=== PATIENT | male | born 1950 | race Caucasian/White ===

== ENCOUNTER 2019-05-23 14:47 | Emergency (ER) | payer BC, MEDICARE ==
[2019-05-23] MEDS ORDERED: METHYLPREDNISOLONE PF 125MG/VIAL IVP ONE (15:21)
[2019-05-23] MEDS ORDERED: IPRATROPIUM/ALBUTEROL (0.5MG/3MG) NEB INH ONE (15:21)
[2019-05-23] MEDS ORDERED: ALBUTEROL SULFATE (0.083%) 2.5 MG/3 ML NEB INH ONE (15:21)
--- NOTE | 2019-05-23 15:27 | Emergency Department Record ---
History of Present Illness - General Chief Complaint: Shortness of breath Stated Complaint: BRICE/RT SIDE PAIN Time Seen by Provider: 05/23/19 15:18 Source: Patient, Family Mode of Arrival: Wheelchair Limitations: No limitations - History of Present Illness Initial Comments: The patient is here due to a 5 day hx of cough, SOB and sharp R lower rib pain. The pain is worse with any cough, deep breathing or movement. He denies any L sided CP, fever, chills, AP, or sputum production. The patient does have an extensive hx of COPD and is on home O2. MD Complaint: Shortness of breath Onset/Timin -: Days(s) Severity scale (1-10): 7 Quality: Sharp Consistency: Constant Improves With: Nothing Worsens With: Inspiration Known History Of: COPD Associated Symptoms: Denies other symptoms Treatments Prior to Arrival: Oxygen - Related Data Home Oxygen Therapy: Yes Home Oxygen Amount: 2 Liters Home Medications Medication Instructions Recorded Confirmed Last Taken Albuterol Sulfate [Proair Hfa] 1 - 2 puff IH .EVERY 4-6 HOURS PRN 05/23/19 05/23/19 Unknown Aspirin 81 mg PO DAILY 05/23/19 05/23/19 Unknown Atorvastatin Calcium [Lipitor] 80 mg PO DAILY 05/23/19 05/23/19 Unknown Budesonide/Formoterol Fumarate 10.2 gm IH BID 05/23/19 05/23/19 Unknown [Symbicort 160-4.5 Mcg Inhaler] Buspirone HCl [Buspar] 10 mg PO DAILY 05/23/19 05/23/19 Unknown Duloxetine HCl [Cymbalta] 60 mg PO DAILY 05/23/19 05/23/19 Unknown Metoprolol Succinate [Toprol Xl] 25 mg PO DAILY 05/23/19 05/23/19 Unknown Montelukast Sodium [Singulair] 10 mg PO QHS 05/23/19 05/23/19 Unknown Tamsulosin HCl [Flomax] 0.4 mg PO DAILY 05/23/19 05/23/19 Unknown Ticagrelor [Brilinta] 90 mg PO BID 05/23/19 05/23/19 Unknown Allergies Allergy/AdvReac Type Severity Reaction Status Date / Time No Known Drug Allergies Allergy Verified 05/23/19 16:10 Travel Screening - Travel/Exposure Within Last 30 Days Have you traveled within the last 30 days?: No Review of Systems Constitutional: Denies: Chills, Fever Eyes: Denies: Eye discharge ENT: Reports: Congestion Respiratory: Reports: Cough, Dyspnea. Denies: Hemoptysis Cardiovascular: Denies: Arrhythmia Endocrine: Reports: Fatigue Gastrointestinal: Denies: Diarrhea Genitourinary: Denies: Dysuria Musculoskeletal: Denies: Arthralgia Skin: Denies: Bruising Past Medical History - SOCIAL HISTORY Smoking Status: Former smoker Alcohol Use: None Drug Use: None - RESPIRATORY Hx Respiratory Disorders: Yes Hx COPD: Yes - CARDIOVASCULAR Hx Cardio Disorders: Yes Hx Abnormal EKG: Yes Hx Heart Attack: Yes Hx Vascular Disease: Yes (CAD) - NEURO Hx Neuro Disorders: Yes Hx Neuropathy: Yes - GI Hx GI Disorders: No - Hx Genitourinary Disorders: Yes Hx Prostate Problems: Yes - ENDOCRINE Hx Endocrine Disorders: No - MUSCULOSKELETAL Hx Musculoskeletal Disorders: Yes Hx Arthritis: Yes - PSYCH Hx Psych Problems: Yes Hx Anxiety: Yes - HEMATOLOGY/ONCOLOGY Hx Hematology/Oncology Disorders: Yes Hx Cancer: Yes Hx Chemotherapy: No Hx Radiation Therapy: No Family Medical History Any Significant Family History?: No Physical Exam - General General Appearance: Alert, Oriented x3, Cooperative, Mild distress (The patient is in mild distress and appears quite cachectic from COPD.) - Head Head exam: Atraumatic, Normocephalic, Normal inspection - Eye Eye exam: Normal appearance, PERRL - ENT Throat exam: Normal inspection. negative: Tonsillar erythema, Tonsillar exudate - Neck Neck exam: Normal inspection, Full ROM. negative: Lymphadenopathy, Tenderness - Respiratory Respiratory exam: Decreased breath sounds (R base.). negative: Normal lung tory nds bilaterally - Cardiovascular Cardiovascular Exam: Regular rate, Normal rhythm, Normal heart sounds - GI/Abdominal GI/Abdominal exam: Soft, Normal bowel sounds. negative: Distended, Rebound, Rigid, Tenderness - Extremities Extremities exam: Normal inspection, Full ROM, Normal capillary refill. negative: Tenderness - Neurological Neurological exam: Alert. negative: Motor sensory deficit Course Vital Signs 05/23/19 05/23/19 15:04 15:13 Temperature 98.1 F Pulse Rate 105 H Pulse Rate [ 99 H Pulse Ox Probe] Respiratory 22 28 H Rate Blood Pressure 108/89 Blood Pressure 108/89 [Left Arm] Pulse Ox 86 L 83 L - Reevaluation(s) Reevaluation #1: The patient is doing a lot better at this time. He is breathing much better and talking in full sentences. I did discuss the lab and xray results with the patient and did recommend hospital transfer to [facility] due to the fact that is where all his records are and where his PCP works. The patient did agree to that plan. I then did discuss the case with Dr. Valentin and he did accept the patient to [facility]. 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.) - Radiology Data Radiology results: Report reviewed (CXR: Extensive COPD, Mod to large RLL effusion with atelectasis or infiltrate present.) Disposition Disposition: Transfer Clinical Impression: COPD exacerbation Disposition: Acute Care Hospital Transfer Transfer To: [facility] Reason For Transfer: Pulmonary evaluation Accepting Physician: Homero Time Discussed w/Accepting Physician: 16:17 Condition: (2) Stable Forms: Patient Portal Access Time of Disposition: 16:17 Quality - Quality Measures Quality Measures: N/A - Blood Pressure Screening View Details: Yes Does Patient Have Any of the Following: No Blood Pressure Classification: Pre-Hypertensive BP Reading Systolic Measurement: 108 Diastolic Measurement: 89 Screening for High Blood Pressure: < Pre-Hypertensive BP, F/U Documented > [G8950] Pre-Hypertensive Follow-up Interventions: Referral to alternative/primary care provider.
[2019-05-23 15:30] LABS: HEMATOCRIT 44.5 % (42.0-52.0); HEMOGLOBIN 13.9 gm/dl (14.0-18.0); MEAN CELL VOLUME 96.1 fl (81-97); MEAN CORPUSCULAR HGB CONC 31.2 g/dl (32-36); MEAN PLATELET VOLUME 9.7 fl (7.4-10.4); PLATELET COUNT 376 K/uL (130-400); RED BLOOD COUNT 4.63 M/uL (4.40-5.70); RED CELL DISTRIBUTION WIDTH 15.7 % (11.5-14.5); WHITE BLOOD COUNT W/O DIFF 14.6 K/uL (4.2-12.2)
[2019-05-23 15:43] LABS: BLOOD UREA NITROGEN 20 mg/dL (8-23); CREATININE 0.7 mg/dL (0.7-1.2); EST GLOMERULAR FILTRATION RATE > 60 mL/min
[2019-05-23 15:44] LABS: TOTAL PROTEIN 7.3 g/dL (6.6-8.7)
[2019-05-23 15:46] LABS: GLUCOSE,RANDOM 115 mg/dL (74-109)
[2019-05-23 15:48] LABS: ALT/SGPT 109 U/L (<41); AST/SGOT 104 U/L (10.0-50.0)
[2019-05-23 15:49] LABS: ALB/GLOB RATIO 0.9 (1.1-1.8); ALBUMIN 3.4 g/dL (4.0-5.0); ALKALINE PHOSPHATASE 161 U/L (40-129)
[2019-05-23 15:53] LABS: PLATELET ESTIMATE NORMAL (NORMAL)
[2019-05-23] MEDS ORDERED: AZITHROMYCIN 500 MG in 0.9 % SODIUM CHLORIDE 250ML 250 ML IVPB ONE (16:09)
[2019-05-23] MEDS ORDERED: CEFTRIAXONE SODIUM 1 GM in 0.9 % SODIUM CHLORIDE 100ML 100 ML IVPB ONE (16:09)
[2019-05-23] MEDS ORDERED: CEFTRIAXONE 1GM/50ML BAG 1 GM/50 ML BAG IVPB ONE (16:30)
[2019-05-23 17:36] LABS: URINE APPEARANCE SL CLOUDY; URINE BILIRUBIN NEGATIVE (NEGATIVE); URINE BLOOD NEGATIVE (NEGATIVE); URINE COLOR YELLOW; URINE GLUCOSE (UA) NEGATIVE (NEGATIVE); URINE KETONE TRACE (NEGATIVE); URINE LEUKOCYTE ESTERASE TRACE (NEGATIVE); URINE NITRITE POSITIVE (NEGATIVE); URINE PROTEIN TRACE (NEGATIVE); URINE UROBILINOGEN >=8.0 E.U./dL (0.20 - 1.00)
[2019-05-23 17:41] LABS: URINE BACTERIA 4+; URINE EPITHELIAL CELLS NONE SEEN (FEW); URINE RBC NONE SEEN (NONE SEEN); URINE WBC 21 - 35 (0-2/hpf)
--- NOTE | 2019-05-25 07:47 | RADIOLOGY REPORT ---
EXAM: CHEST, TWO VIEWS HISTORY: RIGHT LOWER RIB PAIN, DIFFICULTY IN BREATHING, SHORTNESS OF BREATH. TECHNIQUE: PA and lateral views of the chest were obtained. Comparison: None. FINDINGS: The heart size is within normal limits. ICD in place with no definite pneumothorax seen, however, there does appear to be advanced underlying COPD probably with extensive bullous disease in the mid to upper lungs in particular, right greater than left. There is also prominent opacity in the right base which is probably largely related to right pleural effusion although there may be some underlying right basilar atelectasis or infiltrate as well. Follow-up films are suggested after suitable therapy to confirm clearing. There is some minor linear fibrosis or discoid atelectasis in the left base. There is probably coronary artery calcification or a long coronary artery stent in place. IMPRESSION: 1. FINDINGS CONSISTENT WITH ADVANCED COPD. 2. OPACITY IN THE RIGHT BASE PROBABLY LARGELY BY PLEURAL EFFUSION ALTHOUGH POSSIBLY SOME UNDERLYING ATELECTASIS OR INFILTRATE. 3. SINGLE LEAD ICD IN PLACE. 4. APPARENT EXTENSIVE CORONARY ARTERY CALCIFICATION OR AN ELONGATED CORONARY ARTERY STENT. THE HEART IS NOT ENLARGED. JOB NUMBER: [id number] [facility]
== END 2019-05-23 18:27 | disposition short-term general hospital (02) ==
LOC: ER 14:47
DX: J44.1 Chronic obstructive pulmonary disease with (acute) exacerbation (principal); I25.2 Old myocardial infarction; Z87.891 Personal history of nicotine dependence
CPT/HCPCS: 71046; 80053; 81001; 84484; 85027; 93005; 93010; 94640; 96365; 96366; 96368; 96375; 99285; J0456; J2930; J7050; J7613